=== PATIENT | male | born 1980 ===

== ENCOUNTER 2017-12-09 15:02 | Emergency (ER) | payer OTHER ==
[2017-12-09] MEDS ORDERED: SODIUM CHLORIDE 0.9% 1000ML 1,000 ML IV ONE (15:21)
[2017-12-09] MEDS ORDERED: SODIUM CHLORIDE 0.9% FLUSH 10 ML SOL IV PRN (15:22)
[2017-12-09 15:25] LABS: BASOPHILS % (AUTO) 1 % (0-3); EOSINOPHILS % (AUTO) 0 % (0-9); HEMATOCRIT 28 % (39-53); HEMOGLOBIN 8.9 gm/dl (13.5-17.7); LYMPHOCYTES % (AUTO) 0.7 % (10-50); MEAN CORPUSCULAR HEMOGLOBIN 30.3 pg (27.0-32.0); MEAN CORPUSCULAR HGB CONC 31.6 gm/dl (32.0-36.0); MEAN CORPUSCULAR VOLUME 96 fL (80-100); MONOCYTES % (AUTO) 1.4 % (0-12)
[2017-12-09 15:28] VITALS: RESP 18; TEMP 97.5
[2017-12-09 15:28] LABS: CALCIUM 9.1 mg/dl (8.5-10.1); CARBON DIOXIDE 26.6 mEq/L (21-32); CREATININE 1.56 mg/dl (0.80-1.30); POTASSIUM 4.3 mMol/L (3.5-5.1)
[2017-12-09 16:19] LABS: LACTIC ACID 0.9 mMol/L (0.0-2.0)
[2017-12-09 16:20] LABS: ALCOHOL 0.003 gm/dl (0.000-0.08)
[2017-12-09 17:00] LABS: APPEARANCE,URINE Clear; BILIRUBIN,URINE NEGATIVE (NEGATIVE); COLOR,URINE Yellow; GLUCOSE, URINE (UA) NEGATIVE (NEGATIVE); KETONES,URINE NEGATIVE (NEGATIVE); LEUKOCYTE ESTERASE ,URINE NEGATIVE (NEGATIVE); NITRATE,URINE NEGATIVE (NEGATIVE); OCCULT BLOOD,URINE TRACE INTACT (NEG-TRACE); PH,URINE 6.5; UROBILINOGEN,URINE 0.2 (0.2-1.0 EU)
[2017-12-09 17:14] LABS: AMPHETAMINES POSITIVE (NEGATIVE); BACTERIA TRACE (< 1+); BARBITUATES NEGATIVE (NEGATIVE); BENZODIAZEPINES NEGATIVE (NEGATIVE); CANNABINOL(THC) NEGATIVE (NEGATIVE); COCAINE(COC) NEGATIVE (NEGATIVE); CRYSTALS NEGATIVE (0-3 AVE/HPF); EPITHELIAL CELLS NEGATIVE (SQUAMOUS); METHADONE NEGATIVE (NEGATIVE); METHAMPHETAMINES POSITIVE (NEGATIVE); OPIATES(OPI) NEGATIVE (NEGATIVE); OXYCODONE(OXY) POSITIVE (NEGATIVE); PROPOXYPHENE(PPX) NEGATIVE (NEGATIVE); TRICYCLIC ANTIDEPRESSANTS NEGATIVE (NEGATIVE)
[2017-12-09 17:36] VITALS: BP 151/96; PULSE 112; O2SAT 97
== END 2017-12-09 17:30 | disposition home or self-care (01) ==
LOC: ED 15:02
DX: E86.0 Dehydration (principal); N17.9 Acute kidney failure, unspecified
CPT/HCPCS: 36415; 71045; 80048; 80305; 80307; 81001; 85025; 87040; 96365; 96366; 99283; 99284

== ENCOUNTER 2017-12-18 22:07 | Emergency (ER) | payer OTHER ==
[2017-12-18 22:13] VITALS: RESP 20; O2SAT 100
[2017-12-18] MEDS ORDERED: SODIUM CHLORIDE 0.9% 1000ML 1,000 ML IV ONE (22:31)
[2017-12-18] MEDS ORDERED: SODIUM CHLORIDE 0.9% FLUSH 10 ML SOL IV PRN (22:33)
[2017-12-18 22:43] LABS: HEMATOCRIT 26 % (39-53); HEMOGLOBIN 8.5 gm/dl (13.5-17.7); MEAN CORPUSCULAR HEMOGLOBIN 29.8 pg (27.0-32.0); MEAN CORPUSCULAR HGB CONC 32.4 gm/dl (32.0-36.0); MEAN CORPUSCULAR VOLUME 92 fL (80-100)
[2017-12-18 22:56] LABS: ALBUMIN 2.4 gm/dl (3.4-5.0); BILIRUBIN,TOTAL 0.4 mg/dl (0.2-1.0); CALCIUM 8.9 mg/dl (8.5-10.1); CREATININE 2.05 mg/dl (0.80-1.30); POTASSIUM 4.8 mMol/L (3.5-5.1); TOTAL PROTEIN 7.1 gm/dl (6.4-8.2)
[2017-12-18 23:03] LABS: BAND NEUTROPHILS % (MANUAL) 2 %; BASOPHILS % (MANUAL) 0 % (0-3); EOSINOPHILS % (MANUAL) 0 % (0-9); LYMPHOCYTES % (MANUAL) 3 % (10-50); MONOCYTES % (MANUAL) 1 % (0-12); NEUTROPHILS % (MANUAL) 94 % (37-80); NORMAL RBCS PRESENT
[2017-12-19 00:59] VITALS: TEMP 97
[2017-12-19 01:01] VITALS: BP 118/71; PULSE 91
== END 2017-12-19 00:36 | disposition home or self-care (01) ==
LOC: ED 22:07
DX: R42 Dizziness and giddiness (principal); I95.89 Other hypotension; D64.9 Anemia, unspecified
CPT/HCPCS: 36415; 80053; 85007; 85027; 96365; 99283; 99284

== ENCOUNTER 2017-12-21 21:03 | Emergency (ER) | payer OTHER ==
[2017-12-21 21:16] VITALS: BP 96/59; PULSE 88; RESP 16; TEMP 97.5; O2SAT 98
[2017-12-21 21:46] LABS: BASOPHILS % (AUTO) 1 % (0-3); EOSINOPHILS % (AUTO) 0 % (0-9); HEMATOCRIT 28 % (39-53); HEMOGLOBIN 8.4 gm/dl (13.5-17.7); LYMPHOCYTES % (AUTO) 2.3 % (10-50); MEAN CORPUSCULAR HEMOGLOBIN 28.7 pg (27.0-32.0); MEAN CORPUSCULAR HGB CONC 30.5 gm/dl (32.0-36.0); MEAN CORPUSCULAR VOLUME 94 fL (80-100); MONOCYTES % (AUTO) 0.9 % (0-12); NEUTROPHILS % (AUTO) 95.1 % (37-80)
[2017-12-21 21:49] LABS: ALBUMIN 2.3 gm/dl (3.4-5.0); BILIRUBIN,TOTAL 0.2 mg/dl (0.2-1.0); CALCIUM 8.8 mg/dl (8.5-10.1); CARBON DIOXIDE 20.9 mEq/L (21-32); CREATININE 1.69 mg/dl (0.80-1.30); CRP INFLAMMATORY 5.27 mg/dl (0.00-0.33); POTASSIUM 5.3 mMol/L (3.5-5.1); TOTAL PROTEIN 7.4 gm/dl (6.4-8.2)
[2017-12-21 22:13] LABS: APPEARANCE,URINE CLEAR; COLOR,URINE YELLOW; PH,URINE 5.5
[2017-12-21 22:14] LABS: AMPHETAMINES NEGATIVE (NEGATIVE); BARBITUATES NEGATIVE (NEGATIVE); BENZODIAZEPINES NEGATIVE (NEGATIVE); BILIRUBIN,URINE NEGATIVE (NEGATIVE); CANNABINOL(THC) NEGATIVE (NEGATIVE); COCAINE(COC) NEGATIVE (NEGATIVE); GLUCOSE, URINE (UA) NEGATIVE (NEGATIVE); KETONES,URINE NEGATIVE (NEGATIVE); LEUKOCYTE ESTERASE ,URINE NEGATIVE (NEGATIVE); METHADONE NEGATIVE (NEGATIVE); METHAMPHETAMINES NEGATIVE (NEGATIVE); NITRATE,URINE NEGATIVE (NEGATIVE); OCCULT BLOOD,URINE NEGATIVE (NEG-TRACE); OPIATES(OPI) NEGATIVE (NEGATIVE); OXYCODONE(OXY) NEGATIVE (NEGATIVE); PROPOXYPHENE(PPX) NEGATIVE (NEGATIVE); TRICYCLIC ANTIDEPRESSANTS NEGATIVE (NEGATIVE); UROBILINOGEN,URINE 0.2 (0.2-1.0 EU)
[2017-12-21 22:43] LABS: BACTERIA TRACE (< 1+); CRYSTALS NEGATIVE (0-3 AVE/HPF); EPITHELIAL CELLS 0-2 (SQUAMOUS); RBC,URINE NEGATIVE (0-3AV/HPF); WBC,URINE 0-1 (0-5AV/HPF)
== END 2017-12-21 22:50 | disposition home or self-care (01) ==
LOC: ED 21:03
DX: R42 Dizziness and giddiness (principal)
CPT/HCPCS: 80053; 80305; 81001; 85025; 99282

== ENCOUNTER 2017-12-22 11:01 | Emergency (ER) | payer OTHER ==
[2017-12-22 11:13] VITALS: TEMP 97.5
[2017-12-22] MEDS ORDERED: SODIUM CHLORIDE 0.9% 1000ML 1,000 ML IV SCH (11:15)
[2017-12-22 11:37] LABS: BASOPHILS % (AUTO) 1 % (0-3); EOSINOPHILS % (AUTO) 0 % (0-9); HEMATOCRIT 26 % (39-53); HEMOGLOBIN 8.2 gm/dl (13.5-17.7); MEAN CORPUSCULAR VOLUME 93 fL (80-100); MONOCYTES % (AUTO) 3.4 % (0-12); NEUTROPHILS % (AUTO) 92.3 % (37-80)
[2017-12-22 11:44] LABS: LACTIC ACID < 0.8 mMol/L (0.0-2.0)
[2017-12-22 11:46] LABS: ALBUMIN 2.2 gm/dl (3.4-5.0); ALKALINE PHOSPHATASE 78 IU/L (46-116); ALT 31 IU/L (14-63); AST 23 IU/L (15-37); BILIRUBIN,TOTAL 0.2 mg/dl (0.2-1.0); BLOOD UREA NITROGEN 12 mg/dl (7-18); CALCIUM 8.8 mg/dl (8.5-10.1); CARBON DIOXIDE 24.7 mEq/L (21-32); CHLORIDE 106 mMol/L (98-107); CREATININE 1.65 mg/dl (0.80-1.30); CRP INFLAMMATORY 3.34 mg/dl (0.00-0.33); GLUCOSE 137 mg/dl (74-106); POTASSIUM 4.7 mMol/L (3.5-5.1); SODIUM 138 mMol/L (136-145); TOTAL PROTEIN 6.9 gm/dl (6.4-8.2)
[2017-12-22 12:22] LABS: AMPHETAMINES NEGATIVE (NEGATIVE); BARBITUATES NEGATIVE (NEGATIVE); BENZODIAZEPINES NEGATIVE (NEGATIVE); CANNABINOL(THC) NEGATIVE (NEGATIVE); COCAINE(COC) NEGATIVE (NEGATIVE); METHADONE NEGATIVE (NEGATIVE); METHAMPHETAMINES NEGATIVE (NEGATIVE); OPIATES(OPI) NEGATIVE (NEGATIVE); OXYCODONE(OXY) NEGATIVE (NEGATIVE); PROPOXYPHENE(PPX) NEGATIVE (NEGATIVE); TRICYCLIC ANTIDEPRESSANTS NEGATIVE (NEGATIVE)
[2017-12-22 15:06] VITALS: BP 127/83; PULSE 74; RESP 19; O2SAT 98
== END 2017-12-22 14:57 | disposition home or self-care (01) ==
LOC: ED 11:01
DX: R53.1 Weakness (principal); G93.40 Encephalopathy, unspecified
CPT/HCPCS: 36415; 70450; 80053; 80305; 85025; 87040; 96365; 96366; 99284

== ENCOUNTER 2017-12-26 09:52 | Emergency (ER) | payer OTHER ==
[2017-12-26 10:06] VITALS: RESP 16
[2017-12-26] MEDS ORDERED: APAP/CODEINE 1 EACH TABLET PO ONE (10:38)
[2017-12-26 10:54] LABS: CALCIUM 8.7 mg/dl (8.5-10.1); CARBON DIOXIDE 25.6 mEq/L (21-32); CREATININE 1.37 mg/dl (0.80-1.30)
[2017-12-26] MEDS ORDERED: APAP/CODEINE 1 EACH TABLET ONE (10:55)
[2017-12-26 10:58] LABS: BASOPHILS % (AUTO) 1 % (0-3); EOSINOPHILS % (AUTO) 0 % (0-9); HEMATOCRIT 30 % (39-53); HEMOGLOBIN 9.3 gm/dl (13.5-17.7); LYMPHOCYTES % (AUTO) 1.3 % (10-50); MEAN CORPUSCULAR HEMOGLOBIN 28.8 pg (27.0-32.0); MEAN CORPUSCULAR HGB CONC 30.9 gm/dl (32.0-36.0); MEAN CORPUSCULAR VOLUME 93 fL (80-100); MONOCYTES % (AUTO) 1.7 % (0-12); NEUTROPHILS % (AUTO) 95.9 % (37-80)
[2017-12-26 11:03] LABS: APPEARANCE,URINE Clear; BILIRUBIN,URINE NEGATIVE (NEGATIVE); COLOR,URINE Yellow; GLUCOSE, URINE (UA) NEGATIVE (NEGATIVE); KETONES,URINE NEGATIVE (NEGATIVE); LEUKOCYTE ESTERASE ,URINE NEGATIVE (NEGATIVE); NITRATE,URINE NEGATIVE (NEGATIVE); OCCULT BLOOD,URINE NEGATIVE (NEG-TRACE); UROBILINOGEN,URINE 0.2 (0.2-1.0 EU)
[2017-12-26 11:12] LABS: AMPHETAMINES NEGATIVE (NEGATIVE); BACTERIA NEGATIVE (< 1+); BARBITUATES NEGATIVE (NEGATIVE); BENZODIAZEPINES NEGATIVE (NEGATIVE); CANNABINOL(THC) NEGATIVE (NEGATIVE); COCAINE(COC) NEGATIVE (NEGATIVE); CRYSTALS NEGATIVE (0-3 AVE/HPF); EPITHELIAL CELLS 0-3 (SQUAMOUS); METHADONE NEGATIVE (NEGATIVE); OPIATES(OPI) NEGATIVE (NEGATIVE); RBC,URINE NEG (0-3AV/HPF); TRICYCLIC ANTIDEPRESSANTS NEGATIVE (NEGATIVE)
[2017-12-26 11:13] LABS: METHAMPHETAMINES NEGATIVE (NEGATIVE); OXYCODONE(OXY) NEGATIVE (NEGATIVE); PROPOXYPHENE(PPX) NEGATIVE (NEGATIVE)
[2017-12-26] MEDS ORDERED: CYCLOBENZAPRINE 10 MG TAB PO ONE (11:21)
[2017-12-26] MEDS ORDERED: CYCLOBENZAPRINE 10 MG TAB ONE (11:43)
[2017-12-26 11:47] VITALS: BP 122/83; PULSE 101; TEMP 96.6; O2SAT 98
== END 2017-12-26 12:37 | disposition home or self-care (01) ==
LOC: ED 09:52
DX: M25.511 Pain in right shoulder (principal); N28.9 Disorder of kidney and ureter, unspecified; Z94.0 Kidney transplant status
CPT/HCPCS: 36415; 80048; 80305; 81001; 85025; 99283; A9270-GY